=== PATIENT | female | born 1970 | race Caucasian/White ===

== ENCOUNTER 2020-12-11 12:28 | Outpatient (REF) | payer MEDICAID, SELFPAY ==
--- NOTE | ~2020-12-11 | MM_ITS ---
EXAMINATION: MM SCREENING DIGITAL BREAST TOMOSYNTHESIS, BILATERAL CLINICAL INFORMATION: Screening. Asymptomatic. The lifetime risk of breast cancer based on the Tyrer-Cuzick Model is 7%. COMPARISON: Mammography: 12/06/2019, 07/02/2018, 06/03/2017 TECHNIQUE: Digital breast tomosynthesis is performed in both the craniocaudal and mediolateral oblique views along with computer-aided detection (CAD). Synthesized 2D images are generated from the tomosynthesis. FINDINGS: The breasts are heterogeneously dense, which may obscure small masses (ACR BI-RADS breast composition Category c). Breast tissue composition borders on average fibroglandular. There are no significant masses, abnormal calcifications, or other abnormalities. There are scattered shifting fibroglandular densities related to positioning from year to year. There is no developing density. The axilla and skin contours are unremarkable. MM/MM tomosynthesis screening BI IMPRESSION: No mammographic evidence of malignancy. ASSESSMENT: BI-RADS 1: Negative RECOMMENDATION: Routine annual mammography screening. This patient's information was entered into a reminder system with a target due date for their next mammogram.
== END 2020-12-11 12:29 | disposition home or self-care (01) ==
LOC: HO.MAMMO 12:28
PROVIDERS: Visit Provider Emergency Medicine
DX: Z12.31 Encounter for screening mammogram for malignant neoplasm of breast (principal)
CPT/HCPCS: 77063; 77067

== ENCOUNTER → 2021-08-14 14:09 | Outpatient (BNVA) | payer MEDICAID, SELFPAY | PROVIDERS: PCP Emergency Medicine; Referring Provider Emergency Medicine; Visit Provider Nurse Practitioner Family | DX: R19.5 Other fecal abnormalities (principal); K21.9 Gastro-esophageal reflux disease without esophagitis | CPT/HCPCS: 99202 ==

== ENCOUNTER → 2021-09-18 12:01 | Outpatient (BNVA) | payer MEDICAID, SELFPAY | PROVIDERS: PCP Emergency Medicine; Referring Provider Emergency Medicine; Visit Provider Nurse Practitioner Family | DX: Z12.11 Encounter for screening for malignant neoplasm of colon (principal); K58.2 Mixed irritable bowel syndrome; K21.9 Gastro-esophageal reflux disease without esophagitis | CPT/HCPCS: 99212 ==

== ENCOUNTER 2021-10-29 08:56 | Day surgery (SDC) | payer MEDICAID, SELFPAY ==
[2021-10-23 12:59] VITALS: BMI 32.5
--- NOTE | 2021-10-26 12:12 | P.CONAN_ITS ---
Documented by User: Chani Rodriguez NP 10/26/21 12:12 HPI - Anesthesia Eval Consult details Narrative: 51yo F for Upper Endoscopy and Colonoscopy [facility] Past Medical History Medical History Anemia Asthma Eczema Gastritis GERD (gastroesophageal reflux disease) HTN (hypertension) Postprandial diarrhea Family History Family History Mother Lung cancer Father Stomach cancer Brother Asthma Diabetes Sister Diabetes Surgical History Surgical History History of bunionectomy of both great toes History of tubal ligation Hx of cholecystectomy Hx of dilation and curettage Social History Social History Unable to assess alcohol history related to: Unknown Patient Tobacco Use Status: Former Tobacco user Quit Date: 2 yr ago Tobacco use type: Cigarette Use of substances other than those prescribed or required for medical reasons: Yes Substance Use Frequency: Occasionally Are you DNR?: No Advance Directives: No Advance Directives Information Provided: Yes Meds Allergies Allergy/AdvReac Type Severity Reaction Status Date / Time No Known Allergies Allergy Verified 10/29/21 09:14 [No Known Allergies*] Home Medications Medication Instructions Recorded Confirmed Last Taken Type cholecalciferol 50 mcg PO DAILY 08/14/21 10/23/21 10/29/21 08:45 History (vitamin D3) 50 mcg (2,000 unit) capsule ferrous sulfate 325 mg PO DAILY 08/14/21 10/23/21 Unknown History 325 mg (65 mg iron) tablet fluticasone 250 1 inh 08/14/21 10/23/21 Unknown History mcg-salmeterol INHALATION BID 50 mcg/dose blistr powdr for inhalation (Advair Diskus) hydroxyzine HCl 25 mg PO BID 08/14/21 10/23/21 Unknown History 25 mg tablet PRN lisinopril 5 mg 5 mg PO DAILY 08/14/21 10/23/21 10/29/21 08:45 History tablet montelukast 10 10 mg PO DAILY 08/14/21 10/23/21 Unknown History mg tablet paroxetine HCl 10 mg PO DAILY 08/14/21 10/23/21 10/29/21 08:45 History 10 mg tablet Exam Exam Date and Time: October 26, 2021 1212 Height,Weight and Vital Signs: Height 5 ft 1 in Weight 78.018 kg Assessment and Plan Assessment Anesthesia Assessment: Chart Reviewed Documented by User: Yamini Barfield MD 10/29/21 09:30 [facility] Past Medical History Medical History Anemia Asthma Eczema Gastritis GERD (gastroesophageal reflux disease) HTN (hypertension) Postprandial diarrhea Family History Family History Mother Lung cancer Father Stomach cancer Brother Asthma Diabetes Sister Diabetes Family history of problems with anesthesia: No Surgical History Surgical History History of bunionectomy of both great toes History of tubal ligation Hx of cholecystectomy Hx of dilation and curettage History of Problems with Anesthesia: No Social History Social History Unable to assess alcohol history related to: Unknown Patient Tobacco Use Status: Former Tobacco user Quit Date: 2 yr ago Tobacco use type: Cigarette Use of substances other than those prescribed or required for medical reasons: Yes Substance Use Frequency: Occasionally Are you DNR?: No Advance Directives: No Advance Directives Information Provided: Yes Meds Allergies Allergy/AdvReac Type Severity Reaction Status Date / Time No Known Allergies Allergy Verified 10/29/21 09:14 [No Known Allergies*] Home Medications Medication Instructions Recorded Confirmed Last Taken Type cholecalciferol 50 mcg PO DAILY 08/14/21 10/23/21 10/29/21 08:45 History (vitamin D3) 50 mcg (2,000 unit) capsule ferrous sulfate 325 mg PO DAILY 08/14/21 10/23/21 Unknown History 325 mg (65 mg iron) tablet fluticasone 250 1 inh 08/14/21 10/23/21 Unknown History mcg-salmeterol INHALATION BID 50 mcg/dose blistr powdr for inhalation (Advair Diskus) hydroxyzine HCl 25 mg PO BID 08/14/21 10/23/21 Unknown History 25 mg tablet PRN lisinopril 5 mg 5 mg PO DAILY 08/14/21 10/23/21 10/29/21 08:45 History tablet montelukast 10 10 mg PO DAILY 08/14/21 10/23/21 Unknown History mg tablet paroxetine HCl 10 mg PO DAILY 08/14/21 10/23/21 10/29/21 08:45 History 10 mg tablet Exam Airway Mallampati Class: II TM Dist: >3cm Neck ROM: Full Heart: rrr Lungs: cta Assessment and Plan Assessment Anesthesia Assessment: Anesthesia Plan Discussed (Ordered benadryl IV patient feeling itchy slight rash) and Chart Reviewed Final Anesthetic Review Family History of Problems with Anesthesia: No History of Problems with Anesthesia: No NPO: Yes ASA Class: II Final Preanesthetic Review: No Changes in Pt Med Stat, Meds/Allgs Chart Reviewed and Consent Obtained/Reviewed Patient Risk: Intermediate Procedure Risk: Intermediate Anesthetic Plan Anesthetic Plan: MAC: Disposition: Standard PACU
--- NOTE | 2021-10-29 09:21 | P.HPSUR_ITS ---
Pre-Procedural Eval Section A Date of Service: 10/29/21 Section B Chief Complaint: screening,reflux disease Details of Present Illness: sister with colon polyp Relevant Family History (Specify if Yes): Yes Relevant Social History: None Present Medications: see Short Stay Collaborative assessment Medical History: Significant History (Anemia Asthma Eczema Gastritis GERD (gastroesophageal reflux disease) HTN (hypertension) Postprandial diarrhea) History of Previous Operations: Relevant previous surgery/procedure and date(s) (History of bunionectomy of both great toes History of tubal ligation Hx of cholecystectomy Hx of dilation and curettage) Allergies: Allergies Allergy/AdvReac Type Severity Reaction Status Date / Time No Known Allergies Allergy Verified 10/29/21 09:14 [No Known Allergies*] Review of Systems Sugical H&P ROS: Negative: Constitution, Cardiovascular, Respiratory, Neurological, Psychiatric, Hem-Onc, Allergic/Immunologic, Gastrointestinal, Genitourinary, Musculoskeletal, Integumentary, Endocrine and Eye s/Ears/Nose/Throat Exam Surgical H&P Exam: Normal: HEENT, Normal: Heart, Normal: Lungs, Normal: Extremities, Normal: Abdomen, Normal: Skin and Normal: Neurological Plan Diagnosis/Plan: Unchanged I have reviewed the history and physical and performed a pertinent physical examination on my patient. No changes have occurred unless specified.
[2021-10-29] MEDS: Lactated Ringers 1,000 ML 100 ML IVCONT (09:38)
--- NOTE | 2021-10-29 10:20 | PM.OP ---
Brief Operative Note Date of Service: 10/29/21 Pre-op diagnosis: GERD, screening colonoscopy Post-op diagnosis: same Procedure: see op note Surgeon: Brent Coulter MD Anesthesia: MAC Was an Career Services Director used for this Procedure?: No Estimated blood loss (mL): 0 Condition: stable Disposition: PACU
--- NOTE | 2021-10-29 10:21 | P.OP_ITS ---
Operative Note Operative Note Date of Service: 10/29/21 Narrative: Operative Information Procedure Description: EGD, Colonoscopy FLEXIBLE TRANSORAL UPPER GASTROINTESTINAL ENDOSCOPY AND COLONOSCOPY PROCEDURE NOTE UPPER ENDOSCOPY Consent: Indications for the procedure and potential complications of bleeding, perforation, reaction to medications and missed diagnosis were discussed with the patient and informed consent was obtained. Instrument: Olympus GIF H 190 J mid size upper endoscope Monitoring: Vital signs and clinical assessment, continuous EKG monitoring, Pulse oximetry, Carbon Dioxide monitoring and blood pressure monitoring were done throughout the procedure. Procedure: The patient was placed in the left lateral decubitis position and pre-procedure medications were administered and a bite block was placed. The endoscope was inserted into the mouth and advanced under direct vision to the third part of duodenum. A careful inspection was made as the upper endoscope was withdrawn including a retroflexed examination of the proximal stomach; Findings and interventions are described below. Findings: Larynx:normal Esophagus: GE junction at 33 cm, diaphragm hiatus at 35 cm, consistent with 2 cm sliding hiatal hernia. Partial schartzki ring noted with possible short segment tongues of barretts mucosa, bx taken Stomach: Patchy erythema. Biopsies were obtained. Grade 3 flap valve on retroflexed examination of the cardia. LES very patulous. Duodenum: Normal bulb and descending duodenum, Intervention: Biopsies as noted above COLONOSCOPY Instrument: Olympus variable stiffness pediatric scope 190L Colonoscopy Monitoring: Vital signs and clinical assessment, continuous EKG monitoring, Pulse oximetry, Carbon Dioxide monitoring and blood pressure monitoring were done throughout the procedure. Colon withdrawal time was 9 minutes. Procedure: The patient was placed in the left lateral decubitis position and pre-procedure medications were administered. After a digital rectal examination of the ano-rectum, the video colonoscope was inserted into the rectum and advanced through the colon to the cecum/TI. The colonoscope was slowly withdrawn in a retrograde panoramic fashion and the colon mucosa was carefully examined including a retroflexed view of the rectum. Findings and interventions are described below. Procedure Difficulty: easy Findings: Terminal Ileum-normal Cecum:normal Ascending Colon: normal Transverse Colon - 12-14 mm sessile polyp removed with cold snare Descending Colon:normal Sigmoid Colon: normal Rectum: Retroflexion with small internal hemorrhoids, grade I Anorectum - normal Colon preparation: [place] Bowel Preparation Scale Right colon; 2 Transverse colon: 3 Left colon; 3 (0 = Unprepared colon segment with mucosa not seen due to solid stool that cannot be cleared. 1 = Portion of mucosa of the colon segment seen, but other areas of the colon segment not well seen due to staining, residual stool and/or opaque liquid. 2 = Minor amount of residual staining, small fragments of stool and/or opaque liquid, but mucosa of colon segment seen well. 3 = Entire mucosa of colon segment seen well with no residual staining, small fragments of stool or opaque liquid) Impression and Post Procedure Diagnosis: Endoscopy Findings: patulous LES hiatal hernia gastritis possible barretts esophagus partial schatzki ring Colonoscopy Findings: polyp internal hemorrhoids Plan: Await Pathology results Repeat Colonoscopy in 5 years due to polyp or earlier if clinically indicated High fiber diet leaflet avoid straining at stool, epsom salts and sitz bath, anusol supps or cream GERD precautions, might benefit from fundoplication and surgery if sx are persistent Above findings were reviewed with the patient and relevant handouts were provided if indicated.
[2021-10-29 11:07] VITALS: BP 123/90; PULSE 78; RESP 16; TEMP 36.6; O2SAT 97
[2021-10-29 11:22] VITALS: BP 118/71; PULSE 76; RESP 16; O2SAT 97
[2021-10-29 11:37] VITALS: BP 116/69; PULSE 83; RESP 16; TEMP 36.7; O2SAT 99
== END 2021-10-29 12:13 | disposition home or self-care (01) ==
PROVIDERS: Visit Provider Internal Medicine Gastroenterology
PROC: (CPT 45385; principal; 2021-10-29 10:10)
DX: Z12.11 Encounter for screening for malignant neoplasm of colon (principal); D12.3 Benign neoplasm of transverse colon; K64.0 First degree hemorrhoids; K58.2 Mixed irritable bowel syndrome; K21.9 Gastro-esophageal reflux disease without esophagitis; K29.50 Unspecified chronic gastritis without bleeding; K22.2 Esophageal obstruction; K22.89 Other specified disease of esophagus; K44.9 Diaphragmatic hernia without obstruction or gangrene; I10 Essential (primary) hypertension; D64.9 Anemia, unspecified; J45.909 Unspecified asthma, uncomplicated; Z90.49 Acquired absence of other specified parts of digestive tract; Z87.891 Personal history of nicotine dependence; Z79.899 Other long term (current) drug therapy
CPT/HCPCS: 45385; 43239; 88305; 88342; J1200

== ENCOUNTER → 2021-11-06 13:24 | Outpatient (BNVA) | payer MEDICAID, SELFPAY | PROVIDERS: Visit Provider Nurse Practitioner Family | DX: K21.9 Gastro-esophageal reflux disease without esophagitis (principal); K58.2 Mixed irritable bowel syndrome; K20.90 Esophagitis, unspecified without bleeding; D36.9 Benign neoplasm, unspecified site; Z79.899 Other long term (current) drug therapy | CPT/HCPCS: 99212 ==